=== PATIENT | female | born 1985 | race Caucasian/White ===

== ENCOUNTER 2020-08-15 18:27 | Emergency (ER) | payer OTHER, SELFPAY | END 2020-08-15 20:24 | disposition left against medical advice (07) | PROVIDERS: Emergency Provider Emergency Medicine | DX: Z20.822 Contact with and (suspected) exposure to COVID-19 (principal) ==

== ENCOUNTER 2020-08-16 11:25 | Outpatient (REF) | payer OTHER, SELFPAY ==
[2020-08-16 14:23] LABS: SARS COV2 PCR INHOUSE NEGATIVE (Negative)
== END 2020-08-16 11:26 | disposition home or self-care (01) ==
LOC: HO.LAB 11:25
PROVIDERS: Visit Provider Internal Medicine
DX: Z20.822 Contact with and (suspected) exposure to COVID-19 (principal)
CPT/HCPCS: C9803; U0003